=== PATIENT | male | born 1965 | race Caucasian/White ===

== ENCOUNTER 2017-05-31 13:35 | Inpatient (IN) | payer OTHER ==
[~2017-05-31] VITALS: Ht 177.8 cm; Wt 128.2 kg
[2017-05-31] MEDS ORDERED: IBUP80TA PO (13:51)
[2017-05-31] MEDS ORDERED: NS 1,000 ML IV SCH (15:00)
[2017-05-31] MEDS: MORPHINE 4 MG/ML 1ML SYRINGE IV PRN ×2 (16:02→18:32)
[2017-05-31 16:04] LABS: BASO # 0.1 10^3/uL (0.0-0.2); BASO % 0.2 % (0.0-1.0); IMMATURE GRANULOCYTE % 0.8 % (0-0); LYMPH # 1.1 10^3/uL (1.5-4.5); LYMPH % 3.4 % (24.0-44.0); MEAN CORPUSCULAR HEMOGLOBIN 30.5 pg (27.0-33.0); MEAN CORPUSCULAR VOLUME 92.4 fl (80.0-96.0); MONO # 1.1 10^3/uL (0.0-0.8); MONO % 3.4 % (0.0-5.0); NEUTROPHILS % 92.2 % (36.0-66.0); PLATELET COUNT, AUTOMATED 258 10^3/uL (150-450); RED CELL DISTRIBUTION WIDTH 13.4 % (11.5-14.5)
[2017-05-31 16:25] LABS: ALBUMIN 3.5 GM/DL (3.2-5.2); ALBUMIN/GLOBULIN RATIO 0.78 (1.00-1.93); ALKALINE PHOSPHATASE 64 U/L (45-117); ALT/SGPT 37 U/L (12-78); ANION GAP 5 MEQ/L (8-16); AST/SGOT 17 U/L (15-37); BILIRUBIN,DIRECT 0.1 MG/DL (0.0-0.2); BILIRUBIN,TOTAL 0.6 MG/DL (0.2-1.0); BLOOD UREA NITROGEN 18 MG/DL (7-18); CALCIUM LEVEL 9.1 MG/DL (8.5-10.1); CARBON DIOXIDE LEVEL 29 MEQ/L (21-32); CHLORIDE LEVEL 103 MEQ/L (98-107); CREATININE FOR GFR 1.13 MG/DL (0.70-1.30); GLOMERULAR FILTRATION RATE > 60.0 (>56); GLUCOSE, FASTING 107 MG/DL (70-105); POTASSIUM SERUM 4.1 MEQ/L (3.5-5.1); SODIUM LEVEL 137 MEQ/L (136-145)
[2017-05-31 16:30] LABS: ERYTHROCYTE SEDIMENTATION RATE 4 mm/hr (0-20)
[2017-05-31 16:45] LABS: NEUTROPHILS # 29.6 10^3/uL (1.8-7.7); WHITE BLOOD COUNT 32.2 10^3/uL (4.0-10.0)
--- NOTE | 2017-05-31 18:00 | REPUSA ---
CLINICAL HISTORY: Edema. COMMENTS: Real time sonography with duplex doppler of the right lower extremity was performed with attention to the major deep venous structures. Evaluation reveals the right common femoral, superficial femoral and popliteal veins to be completely compressible without intraluminal thrombus. There is normal spontaneous phasic flow and augmentation . The greater saphenous/common femoral vein junction is patent. IMPRESSION: No evidence of DVT in right lower extremity. Thank you for your kind referral of this patient.
[2017-05-31] MEDS ORDERED: ONDANSETRON 4MG/2ML VIAL (J2405) IV PRN (18:15)
[2017-05-31] MEDS: ACETAMINOPHEN TAB 650MG DOSE (2X325MG) PO PRN (18:31)
--- NOTE | 2017-05-31 18:33 | HPEPDOC ---
General Date of Admission 05/31/2017 at 6:31PM Chief Complaint The patient is a 52-year-old male presented to the ER with right leg pain since this morning. History of Present Illness Patient is a 52 year old male with history of traumatic right leg injury (1996) s/p fracture repair, muscle grafting and skin grafting who presented to the ER with complaints of right leg pain. Patient noted that in January he has had leg pain and drainage from his foot that required medical attention. He went to [facility] and was there for treatment of a cellulitis with drainage. He received Vancomycin and Clindamycin and was discharged home after 3 days without antibiotics. He noted that he had resolution of his symptoms, but had intermittent episodes of drainage from his foot until today. He noted that this morning he had pain that was very severe in his right calf. He rated the pain as a 10/10, aching, stabbing like. Noted that it worsened with movement and improved with morphine in the ER. Patient has described the leg as red, tender to touch and fire hot. He noted that he still experiences drainage from the bottom of his foot, described as yellow to clear. Patient has also noted subjected fevers, denied chills. Patient has noted some nausea, but denied vomiting. Denied chest pain, shortness of breath, palpitations, abdominal pain, constipation, diarrhea or dysuria. Home Medications Scheduled PRN Ibuprofen (Ibuprofen) 800 Mg Tab, 800 MG PO TID PRN for PAIN, (Reported) Allergies Coded Allergies: Penicillins (Verified Allergy, Unknown, 05/31/17) Past Medical History Medical History None reported Surgical History Traumatic leg injury (1996) Right face traumatic injury (age 14) Appendectomy (age 11) Family History - Mother with history of DM2 and HTN - Father unknown history - No history of malignancies Social History - Denies the use of alcohol or illicit drugs; Current smoker of 40 years at 2 ppd - Denies recent travel or sick contacts - Lives with for 37 years - 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; 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 Review of Symptoms Other systems Negative otherwise stated in HPI Vital Signs - Vitals: BP 161/66, HR 112, RR 18, Sat 100%RA, Temp 100.2F - General: Lying in bed, No acute distress, Speaking in full sentences, AAOx3 - HEENT: NC, AT, PERRLA, EOMI - CVS: RRR, +S1S2 - Lungs: Fair air entry bilaterally, Mild wheezing at b/l lung vered - Abdomen: Soft, Non-distended, Non-tender - Extremities: No lower extremity edema, No calf tenderness; Right leg with traumatic changes / skin and muscle grafting, Erythema / Tenderness / Warmth appreciated at right leg and foot, No visible drainage noted - Neuro: No focal motor or sensory deficit - Skin: No visible rashes Laboratory Data Labs 24H Laboratory Tests 2 05/31/17 15:53: Immature Granulocyte % (Auto) 0.8H, White Blood Count 32.2*H, Red Blood Count 5.02, Hemoglobin 15.3, Hematocrit 46.4, Mean Corpuscular Volume 92.4, Mean Corpuscular Hemoglobin 30.5, Mean Corpuscular Hemoglobin Concent 33.0, Red Cell Distribution Width 13.4, Platelet Count 258, Neutrophils (%) (Auto) 92.2H, Lymphocytes (%) (Auto) 3.4L, Monocytes (%) (Auto) 3.4, Eosinophils (%) (Auto) 0.0, Basophils (%) (Auto) 0.2, Neutrophils # (Auto) 29.6H, Lymphocytes # (Auto) 1.1L, Monocytes # (Auto) 1.1H, Eosinophils # (Auto) 0.0, Basophils # (Auto) 0.1 , Immature Granulocyte # (Auto) 0.3H, Nucleated Red Blood Cells % (auto) 0.0, Erythrocyte Sedimentation Rate 4, Anion Gap 5L, Glomerular Filtration Rate > 60.0, Lactic Acid Level 1.5, Calcium Level 9.1, Aspartate Amino Transf (AST/SGOT ) 17, Alanine Aminotransferase (ALT/SGPT) 37, Alkaline Phosphatase 64, Total Bilirubin 0.6, Direct Bilirubin 0.1, C-Reactive Protein, Quantitative 3.86H, Total Protein 8.0, Albumin 3.5, Albumin/Globulin Ratio 0.78L 05/31/17 17:00: Urine Appearance HAZY, Urine Color YELLOW, Urine pH 7.0, Urine Specific [place] 1.018, Urine Protein 1+H, Urine Glucose (UA) NEGATIVE, Urine Ketones NEGATIVE, Urine Urobilinogen 0.2, Urine Bilirubin NEGATIVE, Urine Leukocyte Esterase NEGATIVE, Urine Blood NEGATIVE, Urine Nitrite NEGATIVE, Urine WBC (Auto) 2, Urine RBC (Auto) 3, Urine Hyaline Casts (Auto) 0, Urine Bacteria (Auto) NEGATIVE , Urine Squamous Epithelial Cells 0, Urine Mucus (Auto) SMALL, Urine Sperm (Auto ) CBC/BMP Laboratory Tests 05/31/17 15:53 Red Blood Count 5.02, Mean Corpuscular Volume 92.4, Mean Corpuscular Hemoglobin 30.5, Mean Corpuscular Hemoglobin Concent 33.0, Red Cell Distribution Width 13.4 , Neutrophils (%) (Auto) 92.2 H, Lymphocytes (%) (Auto) 3.4 L, Monocytes (%) ( Auto) 3.4, Eosinophils (%) (Auto) 0.0, Basophils (%) (Auto) 0.2, Neutrophils # ( Auto) 29.6 H, Lymphocytes # (Auto) 1.1 L, Monocytes # (Auto) 1.1 H, Eosinophils # (Auto) 0.0, Basophils # (Auto) 0.1 Microbiology Microbiology 05/31/17 Blood Culture, Received Pending 05/31/17 Blood Culture, Received Pending Plan / VTE VTE Prophylaxis Ordered?: Yes Plan Plan Cellulitis of right leg and foot possibly with underlying osteomyelitis - Presented with redness, warmth, and pain of right foot, fevers at home - History of cellulitis in March requiring hospitalization - Physical with erythema, tenderness and warmth, no appreciable drainage, + lymphadenopathy at right inguinal area - Fever of 100.2 - WBC elevated at 32.2 with Neutrophil predominance, no lactic acidosis - ESR and CRP not significantly elevated - Duplex US 05/31: negative for DVT - Blood cultures pending - Will get XR of foot / tibia / fibula to evaluate for possible osteomyelitis - Will start IV fluid hydration and Ceftaroline - Pain control with Morphine PRN Leukocytosis - See above DVT prophylaxis - Will start Heparin DENISE MOHAMUD MD May 31, 2017 18:33
[2017-05-31] MEDS: NS 1,000 ML IV SCH (18:35)
[2017-05-31] MEDS: CEFTAROLINE FOSAMIL 600 MG in D5W 50 ML IV SCH (18:54)
[2017-05-31 20:45] VITALS: BP 97/52
[2017-05-31] MEDS: HEPARIN SOD (PORCINE) 5000 UNITS/ML VIAL SC SCH (23:49)
[2017-06-01] MEDS: MORPHINE 4 MG/ML 1ML SYRINGE IV PRN ×2 (03:37→12:33)
[2017-06-01] MEDS: NS 1,000 ML IV SCH (03:41)
[2017-06-01 06:00] VITALS: BP 100/60
[2017-06-01] MEDS: CEFTAROLINE FOSAMIL 600 MG in D5W 50 ML IV SCH ×2 (06:12→18:14)
[2017-06-01] MEDS: HEPARIN SOD (PORCINE) 5000 UNITS/ML VIAL SC SCH ×3 (06:12→22:43)
[2017-06-01 06:23] LABS: MEAN CORPUSCULAR HEMOGLOBIN 30.6 pg (27.0-33.0); MEAN CORPUSCULAR HGB CONC 33.1 g/dl (32.0-36.5); MEAN CORPUSCULAR VOLUME 92.4 fl (80.0-96.0); PLATELET COUNT, AUTOMATED 229 10^3/uL (150-450); RED CELL DISTRIBUTION WIDTH 13.5 % (11.5-14.5); WHITE BLOOD COUNT 22.4 10^3/uL (4.0-10.0)
[2017-06-01 06:39] LABS: ADD MANUAL DIFFER YES; DIFF SLIDE NUMBER 63
[2017-06-01 06:40] LABS: ALBUMIN 2.9 GM/DL (3.2-5.2); ALBUMIN/GLOBULIN RATIO 0.71 (1.00-1.93); ALKALINE PHOSPHATASE 66 U/L (45-117); ALT/SGPT 28 U/L (12-78); ANION GAP 7 MEQ/L (8-16); AST/SGOT 10 U/L (15-37); BILIRUBIN,TOTAL 0.5 MG/DL (0.2-1.0); BLOOD UREA NITROGEN 13 MG/DL (7-18); CALCIUM LEVEL 7.9 MG/DL (8.5-10.1); CARBON DIOXIDE LEVEL 25 MEQ/L (21-32); CHLORIDE LEVEL 106 MEQ/L (98-107); CREATININE FOR GFR 0.77 MG/DL (0.70-1.30); GLOMERULAR FILTRATION RATE > 60.0 (>56); GLUCOSE, FASTING 91 MG/DL (70-105); MAGNESIUM LEVEL 2.1 MG/DL (1.8-2.4); POTASSIUM SERUM 3.7 MEQ/L (3.5-5.1); SODIUM LEVEL 138 MEQ/L (136-145)
[2017-06-01 08:03] LABS: BASOPHILS 1 % (0-4)
[2017-06-01 10:00] VITALS: BP 107/54
--- NOTE | 2017-06-01 11:30 | REP ---
A right tib-fib series: Four views. History: Evaluate for bone changes. Comparison radiographs April 08, 2015. Findings: Four views of the right tibia and fibula demonstrate old post-traumatic deformity in the distal fibula and tibia. This is unchanged from the comparison study of 2014. There are surgical clips in the calf soft tissues and some dystrophic calcification is seen. 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 There is a metallic staple in the lateral aspect of the hindfoot. Impression: No acute bony abnormality. Old post-traumatic changes distal tib-fib. Postsurgical changes. Signed by Dixon Sanchez MD 06/01/2017 09:37 A
--- NOTE | 2017-06-01 11:30 | REP ---
Right foot series: Two views. History: Evaluate for bone changes. Findings: There is diffuse osteopenia. A lateral hindfoot staple is seen status post subtalar joint fusion. Dystrophic calcification is seen in the plantar soft tissues. Old post-traumatic deformity is seen in the distal fibula. 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 Impression: No acute bony abnormality. Signed by Dixon Sanchez MD 06/01/2017 09:36 A
--- NOTE | 2017-06-01 13:42 | IPNPDOC ---
Date Seen The patient was seen on 06/01/17. Progress Note Hospitalist Progress Note Subjective: Patient states that the pain in his leg is a little bit better, but the erythema has not improved Objective: Physical Exam: Vitals: Vital Sign - Last 24 Hours 05/31/17 05/31/17 05/31/17 05/31/17 15:30 16:02 16:17 18:26 Temp 101.4 Pulse 69 Resp 16 16 16 16 B/P (MAP) 167/84 (111) Pulse Ox 94 05/31/17 05/31/17 05/31/17 06/01/17 18:32 20:06 20:45 03:37 Temp 99.0 98.9 Pulse 89 88 Resp 16 18 B/P (MAP) 122/50 (74) 97/52 (67) Pulse Ox 94 92 91 95 O2 Delivery Room Air Room Air Room Air 06/01/17 06/01/17 06/01/17 06/01/17 03:47 06:00 09:00 10:00 Temp 99.2 98.4 Pulse 88 80 Resp 18 18 B/P (MAP) 100/60 (73) 107/54 (71) Pulse Ox 94 94 96 O2 Delivery Room Air Room Air Room Air 06/01/17 06/01/17 12:33 12:43 Resp 18 18 General: Awake, alert, no acute distress HEENT: Normocephalic, atraumatic, extraocular movements intact CV: Regular rate and rhythm Lungs: Clear to auscultation bilaterally Abd: Soft, nontender, nondistended Extremities: Intact pedal pulses bilaterally, right lower extremity shows postsurgical changes secondary to skin and muscle grafting with erythema of the calf, coleman, and foot, as well as an area on the bottom of his foot that shows prior grafting but is not currently open or draining Neuro: Alert and oriented 3, normal speech Psych: Normal mood and affect Labs and Imaging: Laboratory Tests 05/31/17 15:53 Red Blood Count 5.02, Mean Corpuscular Volume 92.4, Mean Corpuscular Hemoglobin 30.5, Mean Corpuscular Hemoglobin Concent 33.0, Red Cell Distribution Width 13.4 , Neutrophils (%) (Auto) 92.2 H, Lymphocytes (%) (Auto) 3.4 L, Monocytes (%) ( Auto) 3.4, Eosinophils (%) (Auto) 0.0, Basophils (%) (Auto) 0.2, Neutrophils # ( Auto) 29.6 H, Lymphocytes # (Auto) 1.1 L, Monocytes # (Auto) 1.1 H, Eosinophils # (Auto) 0.0, Basophils # (Auto) 0.1 06/01/17 05:33 Red Blood Count 4.48, Mean Corpuscular Volume 92.4, Mean Corpuscular Hemoglobin 30.6, Mean Corpuscular Hemoglobin Concent 33.1, Red Cell Distribution Width 13.5 , Monocytes # (Auto) , Calcium Level 7.9 L, Aspartate Amino Transf (AST/SGOT) 10 L, Alanine Aminotransferase (ALT/SGPT) 28, Alkaline Phosphatase 66, Total Bilirubin 0.5, Total Protein 7.0, Albumin 2.9 L Assessment and Plan: 52-year-old male with history of traumatic injury to his right leg requiring skin and muscle grafting in 1996 who presented to the emergency department with right leg pain and erythema. He is admitted with cellulitis of the right lower extremity. 1. Right lower extremity cellulitis: The patient's Tmax yesterday was 101.4. WBC upon arrival was 32.2, and this is now improved to 22.2. Blood cultures are pending, but since there is nothing that is currently draining, we cannot obtain a wound culture. There is no evidence of clot on a Doppler ultrasound. Will assess with MRI to rule out osteomyelitis, and continue with Teflaro. BP has been soft, so we will continue IV fluids. DVT prophylaxis: Heparin Dispo: pending improvement of the cellulitis in his leg VS, I&O, [facility]H, [facility] Vital Signs/I&O Vital Signs Date Time Temp Pulse Resp B/P (MAP) Pulse Ox O2 Delivery O2 Flow Rate FiO2 06/01/17 12:43 18 06/01/17 10:00 98.4 80 107/54 (71) 96 Room Air I&O- Last 24 Hours up to 6 AM 06/02/17 06:00 Intake Total 720 ml Output Total 350 ml Balance 370 ml Laboratory Data 24H LABS Laboratory Tests 2 05/31/17 15:53: Immature Granulocyte % (Auto) 0.8H, White Blood Count 32.2*H, Red Blood Count 5.02, Hemoglobin 15.3, Hematocrit 46.4, Mean Corpuscular Volume 92.4, Mean Corpuscular Hemoglobin 30.5, Mean Corpuscular Hemoglobin Concent 33.0, Red Cell Distribution Width 13.4, Platelet Count 258, Neutrophils (%) (Auto) 92.2H, Lymphocytes (%) (Auto) 3.4L, Monocytes (%) (Auto) 3.4, Eosinophils (%) (Auto) 0.0, Basophils (%) (Auto) 0.2, Neutrophils # (Auto) 29.6H, Lymphocytes # (Auto) 1.1L, Monocytes # (Auto) 1.1H, Eosinophils # (Auto) 0.0, Basophils # (Auto) 0.1 , Immature Granulocyte # (Auto) 0.3H, Nucleated Red Blood Cells % (auto) 0.0, Erythrocyte Sedimentation Rate 4, Anion Gap 5L, Glomerular Filtration Rate > 60.0, Lactic Acid Level 1.5, Calcium Level 9.1, Phosphorus Level 2.0L, Magnesium Level 2.0, Aspartate Amino Transf (AST/SGOT) 17, Alanine Aminotransferase (ALT/SGPT) 37, Alkaline Phosphatase 64, Total Bilirubin 0.6, Direct Bilirubin 0.1, C-Reactive Protein, Quantitative 3.86H, Total Protein 8.0 , Albumin 3.5, Albumin/Globulin Ratio 0.78L 05/31/17 17:00: Urine Appearance HAZY, Urine Color YELLOW, Urine pH 7.0, Urine Specific [place] 1.018, Urine Protein 1+H, Urine Glucose (UA) NEGATIVE, Urine Ketones NEGATIVE, Urine Urobilinogen 0.2, Urine Bilirubin NEGATIVE, Urine Leukocyte Esterase NEGATIVE, Urine Blood NEGATIVE, Urine Nitrite NEGATIVE, Urine WBC (Auto) 2, Urine RBC (Auto) 3, Urine Hyaline Casts (Auto) 0, Urine Bacteria (Auto) NEGATIVE , Urine Squamous Epithelial Cells 0, Urine Mucus (Auto) SMALL, Urine Sperm (Auto ) 06/01/17 05:33: White Blood Count 22.4H, Red Blood Count 4.48, Hemoglobin 13.7L, Hematocrit 41.4L, Mean Corpuscular Volume 92.4, Mean Corpuscular Hemoglobin 30.6, Mean Corpuscular Hemoglobin Concent 33.1, Red Cell Distribution Width 13.5, Platelet Count 229, Monocytes # (Auto) , Nucleated Red Blood Cells % (auto) 0.0, Anion Gap 7L, Glomerular Filtration Rate > 60.0, Calcium Level 7.9L, Magnesium Level 2.1, Aspartate Amino Transf (AST/SGOT) 10L, Alanine Aminotransferase (ALT/SGPT) 28, Alkaline Phosphatase 66, Total Bilirubin 0.5, C-Reactive Protein, Quantitative 12.30H, Total Protein 7.0, Albumin 2.9L, Albumin/Globulin Ratio 0.71L, Neutrophils 84H, Lymphocytes (Manual) 8L, Monocytes (Manual) 6, Basophils (Manual) 1, Atypical Lymphocytes 1, Platelet Estimate NORMAL, Red Blood Cell Morphology NORMAL, Blood Urea Nitrogen 13, Creatinine 0.77, Sodium Level 138, Potassium Level 3.7, Chloride Level 106, Carbon Dioxide Level 25 CBC/BMP Laboratory Tests 05/31/17 15:53 Red Blood Count 5.02, Mean Corpuscular Volume 92.4, Mean Corpuscular Hemoglobin 30.5, Mean Corpuscular Hemoglobin Concent 33.0, Red Cell Distribution Width 13.4 , Neutrophils (%) (Auto) 92.2 H, Lymphocytes (%) (Auto) 3.4 L, Monocytes (%) ( Auto) 3.4, Eosinophils (%) (Auto) 0.0, Basophils (%) (Auto) 0.2, Neutrophils # ( Auto) 29.6 H, Lymphocytes # (Auto) 1.1 L, Monocytes # (Auto) 1.1 H, Eosinophils # (Auto) 0.0, Basophils # (Auto) 0.1 06/01/17 05:33 Red Blood Count 4.48, Mean Corpuscular Volume 92.4, Mean Corpuscular Hemoglobin 30.6, Mean Corpuscular Hemoglobin Concent 33.1, Red Cell Distribution Width 13.5 , Monocytes # (Auto) , Calcium Level 7.9 L, Aspartate Amino Transf (AST/SGOT) 10 L, Alanine Aminotransferase (ALT/SGPT) 28, Alkaline Phosphatase 66, Total Bilirubin 0.5, Total Protein 7.0, Albumin 2.9 L Microbiology Microbiology 05/31/17 Blood Culture, Received Pending 05/31/17 Blood Culture, Received Pending LUIS NAIR Jun 01, 2017 13:42
[2017-06-01 14:00] VITALS: BP 107/50
[2017-06-01 18:00] VITALS: BP 132/63
[2017-06-01 22:00] VITALS: BP 126/60
[2017-06-01] MEDS: NORCO, ANEXSIA 5/325MG TABLET (HYDROcodone/ACETAMINOPHEN) PO PRN (22:48)
[2017-06-02 02:00] VITALS: BP 100/59
[2017-06-02 06:00] VITALS: BP 118/72
[2017-06-02] MEDS: HEPARIN SOD (PORCINE) 5000 UNITS/ML VIAL SC SCH ×3 (06:00→21:05)
[2017-06-02 06:20] LABS: MEAN CORPUSCULAR HEMOGLOBIN 30.5 pg (27.0-33.0); MEAN CORPUSCULAR HGB CONC 32.7 g/dl (32.0-36.5); MEAN CORPUSCULAR VOLUME 93.2 fl (80.0-96.0); PLATELET COUNT, AUTOMATED 243 10^3/uL (150-450); RED CELL DISTRIBUTION WIDTH 13.3 % (11.5-14.5)
[2017-06-02 06:29] LABS: POSITIVE DIFF POS FLAG
[2017-06-02 06:30] LABS: ALBUMIN 2.8 GM/DL (3.2-5.2); ALBUMIN/GLOBULIN RATIO 0.65 (1.00-1.93); ALKALINE PHOSPHATASE 53 U/L (45-117); ALT/SGPT 24 U/L (12-78); ANION GAP 3 MEQ/L (8-16); AST/SGOT 11 U/L (15-37); BILIRUBIN,TOTAL 0.2 MG/DL (0.2-1.0); BLOOD UREA NITROGEN 12 MG/DL (7-18); CALCIUM LEVEL 8.5 MG/DL (8.5-10.1); CARBON DIOXIDE LEVEL 28 MEQ/L (21-32); CHLORIDE LEVEL 107 MEQ/L (98-107); GLOMERULAR FILTRATION RATE > 60.0 (>56); GLUCOSE, FASTING 101 MG/DL (70-105); MAGNESIUM LEVEL 2.4 MG/DL (1.8-2.4); POTASSIUM SERUM 3.9 MEQ/L (3.5-5.1); SODIUM LEVEL 138 MEQ/L (136-145); TOTAL PROTEIN 7.1 GM/DL (6.4-8.2)
[2017-06-02 06:31] LABS: ADD MANUAL DIFFER YES; DIFF SLIDE NUMBER 81
[2017-06-02] MEDS: CEFTAROLINE FOSAMIL 600 MG in D5W 50 ML IV SCH ×2 (06:39→18:16)
[2017-06-02] MEDS: NORCO, ANEXSIA 5/325MG TABLET (HYDROcodone/ACETAMINOPHEN) PO PRN ×3 (06:40→21:06)
[2017-06-02 10:00] VITALS: BP 133/57
[2017-06-02 14:00] VITALS: BP 123/60
--- NOTE | 2017-06-02 16:13 | IPNPDOC ---
Date Seen The patient was seen on 06/02/17. Progress Note Hospitalist Progress Note Subjective: Patient states that the pain and erythema in his leg are improving Objective: Physical Exam: Vitals: Vital Sign - Last 24 Hours 06/01/17 06/01/17 06/01/17 06/01/17 18:00 22:00 22:00 22:48 Temp 98.8 99.0 Pulse 89 86 Resp 18 18 18 B/P (MAP) 132/63 (86) 126/60 (82) Pulse Ox 95 94 O2 Delivery Room Air Room Air Room Air Room Air 06/02/17 06/02/17 06/02/17 06/02/17 02:00 06:00 06:40 08:00 Temp 97.8 97.4 Pulse 74 82 Resp 18 18 18 B/P (MAP) 100/59 (73) 118/72 (87) Pulse Ox 91 96 O2 Delivery Room Air Room Air Room Air Room Air 06/02/17 06/02/17 06/02/17 06/02/17 10:00 10:58 11:28 14:00 Temp 97.5 97.4 Pulse 67 70 Resp 16 18 18 16 B/P (MAP) 133/57 (82) 123/60 (81) Pulse Ox 97 94 O2 Delivery Room Air Room Air Room Air Room Air General: Awake, alert, no acute distress HEENT: Normocephalic, atraumatic, extraocular movements intact CV: Regular rate and rhythm Lungs: Clear to auscultation bilaterally Abd: Soft, nontender, nondistended Extremities: Intact pedal pulses bilaterally, right lower extremity shows postsurgical changes secondary to skin and muscle grafting with improved erythema of the calf, coleman, and foot, as well as an area on the bottom of his foot that shows prior grafting but is not currently open or draining Neuro: Alert and oriented 3, normal speech Psych: Normal mood and affect Labs and Imaging: Laboratory Tests 06/02/17 05:27 Calcium Level 8.5, Aspartate Amino Transf (AST/SGOT) 11 L, Alanine Aminotransferase (ALT/SGPT) 24, Alkaline Phosphatase 53, Total Bilirubin 0.2 #, Total Protein 7.1, Albumin 2.8 L 06/02/17 05:28 Red Blood Count 4.43, Mean Corpuscular Volume 93.2, Mean Corpuscular Hemoglobin 30.5, Mean Corpuscular Hemoglobin Concent 32.7, Red Cell Distribution Width 13.3 , Monocytes # (Auto) Assessment and Plan: 52-year-old male with history of traumatic injury to his right leg requiring skin and muscle grafting in 1996 who presented to the emergency department with right leg pain and erythema. He is admitted with cellulitis of the right lower extremity. 1. Right lower extremity cellulitis: The patient is now afebrile. WBC upon arrival was 32.2, and has showed continued improvement to 14. Clinically, the leg is improving. Blood cultures are pending, but since there is nothing that is currently draining, we cannot obtain a wound culture. There is no evidence of clot on a Doppler ultrasound. MRI to rule out osteomyelitis is pending; patient evidently has a staple in his leg remaining from his extensive repair, and MRI is evaluating if this is compatible with the MRI machine or not. Xray does not show any bone abnormalities. Continue with Teflaro. Stop IV fluids. DVT prophylaxis: Heparin Dispo: pending improvement of the cellulitis in his leg VS, I&O, 24H, [facility] Vital Signs/I&O Vital Signs Date Time Temp Pulse Resp B/P (MAP) Pulse Ox O2 Delivery O2 Flow Rate FiO2 06/02/17 14:00 97.4 70 16 123/60 (81) 94 Room Air I&O- Last 24 Hours up to 6 AM 06/03/17 06:00 Intake Total 600 ml Balance 600 ml Laboratory Data 24H LABS Laboratory Tests 2 06/02/17 05:27: Anion Gap 3L, Glomerular Filtration Rate > 60.0, Blood Urea Nitrogen 12, Creatinine 0.70, Sodium Level 138, Potassium Level 3.9, Chloride Level 107, Carbon Dioxide Level 28, Calcium Level 8.5, Aspartate Amino Transf (AST/SGOT) 11L, Alanine Aminotransferase (ALT/SGPT) 24, Alkaline Phosphatase 53, Total Bilirubin 0.2#, Total Protein 7.1, Albumin 2.8L, Magnesium Level 2.4, C- Reactive Protein, Quantitative 15.70H, Albumin/Globulin Ratio 0.65L 06/02/17 05:28: White Blood Count 14.0H, Red Blood Count 4.43, Hemoglobin 13.5L, Hematocrit 41.3L, Mean Corpuscular Volume 93.2, Mean Corpuscular Hemoglobin 30.5, Mean Corpuscular Hemoglobin Concent 32.7, Red Cell Distribution Width 13.3, Platelet Count 243, Monocytes # (Auto) , Nucleated Red Blood Cells % (auto) 0.0, Neutrophils 77H, Lymphocytes (Manual) 16, Monocytes (Manual) 7, Platelet Estimate NORMAL, Red Blood Cell Morphology NORMAL CBC/BMP Laboratory Tests 06/02/17 05:27 Calcium Level 8.5, Aspartate Amino Transf (AST/SGOT) 11 L, Alanine Aminotransferase (ALT/SGPT) 24, Alkaline Phosphatase 53, Total Bilirubin 0.2 #, Total Protein 7.1, Albumin 2.8 L 06/02/17 05:28 Red Blood Count 4.43, Mean Corpuscular Volume 93.2, Mean Corpuscular Hemoglobin 30.5, Mean Corpuscular Hemoglobin Concent 32.7, Red Cell Distribution Width 13.3 , Monocytes # (Auto) Microbiology Microbiology 05/31/17 Blood Culture - Preliminary, Resulted No Growth after 48 hours. All Specime... 05/31/17 Blood Culture - Preliminary, Resulted No Growth after 48 hours. All Specime... LUIS NAIR Jun 02, 2017 16:13
[2017-06-02] MEDS ORDERED: PROHANCE 279.3MG/ML 5ML VIAL (A9576) As Ordered ONE (16:32)
[2017-06-02] MEDS ORDERED: PROHANCE 279.3MG/ML 15ML VIAL (A9576) As Ordered ONE (16:32)
[2017-06-02 18:00] VITALS: BP 119/64
[2017-06-02 22:00] VITALS: BP 107/53
[2017-06-03 02:00] VITALS: BP 122/57
[2017-06-03 06:00] VITALS: BP 122/65
[2017-06-03] MEDS: CEFTAROLINE FOSAMIL 600 MG in D5W 50 ML IV SCH ×2 (06:15→17:59)
[2017-06-03] MEDS: HEPARIN SOD (PORCINE) 5000 UNITS/ML VIAL SC SCH ×3 (06:15→21:00)
[2017-06-03 06:16] LABS: BASO # 0.1 10^3/uL (0.0-0.2); BASO % 0.8 % (0.0-1.0); EOS # 0.3 10^3/uL (0.0-0.50); EOS % 2.2 % (0.0-3.0); IMMATURE GRANULOCYTE % 0.7 % (0-0); LYMPH # 2.5 10^3/uL (1.5-4.5); LYMPH % 20.9 % (24.0-44.0); MEAN CORPUSCULAR HEMOGLOBIN 30.7 pg (27.0-33.0); MEAN CORPUSCULAR VOLUME 92.8 fl (80.0-96.0); MONO # 1.2 10^3/uL (0.0-0.8); NEUTROPHILS # 7.9 10^3/uL (1.8-7.7); NEUTROPHILS % 65.4 % (36.0-66.0); PLATELET COUNT, AUTOMATED 282 10^3/uL (150-450); RED CELL DISTRIBUTION WIDTH 13.3 % (11.5-14.5)
[2017-06-03 06:43] LABS: ALBUMIN 2.9 GM/DL (3.2-5.2); ALKALINE PHOSPHATASE 60 U/L (45-117); ALT/SGPT 30 U/L (12-78); ANION GAP 6 MEQ/L (8-16); AST/SGOT 21 U/L (15-37); BILIRUBIN,TOTAL 0.4 MG/DL (0.2-1.0); BLOOD UREA NITROGEN 12 MG/DL (7-18); CALCIUM LEVEL 8.5 MG/DL (8.5-10.1); CARBON DIOXIDE LEVEL 26 MEQ/L (21-32); CHLORIDE LEVEL 106 MEQ/L (98-107); CREATININE FOR GFR 0.72 MG/DL (0.70-1.30); GLOMERULAR FILTRATION RATE > 60.0 (>56); GLUCOSE, FASTING 88 MG/DL (70-105); MAGNESIUM LEVEL 2.1 MG/DL (1.8-2.4); POTASSIUM SERUM 4.4 MEQ/L (3.5-5.1); SODIUM LEVEL 138 MEQ/L (136-145); TOTAL PROTEIN 7.7 GM/DL (6.4-8.2)
[2017-06-03 08:36] VITALS: BP 130/71
--- NOTE | 2017-06-03 10:01 | REP ---
MRI RIGHT LOWER LEG WITH AND WITHOUT CONTRAST: TECHNIQUE: Multiple sequences obtained in the axial, coronal and sagittal planes prior to and following the intravenous administration of 25 mL of gadolinium. Diffuse ill-defined high signal is seen throughout the soft tissues of the right lower leg on T2-weighted images compatible with diffuse edema. There is scattered ill-defined enhancement of the soft tissues consistent with cellulitis. No focal fluid collection is seen, with no evidence of an abscess. Linear area of high signal in the distal tibia appears to represent a sinus tract from trauma and probably prior metallic hardware, with subsequent removal. No acute bone marrow edema is seen of the tibia or fibula and there is no marrow enhancement with no current evidence of acute osteomyelitis. IMPRESSION: No evidence of acute osteomyelitis. Diffuse edema of the soft tissues of the right lower leg with cellulitis. No abscess. Signed by Steven Harrison MD 06/03/2017 07:57 P
--- NOTE | 2017-06-03 10:08 | REP ---
MRI OF THE RIGHT FOOT WITH AND WITHOUT CONTRAST: TECHNIQUE: Multiple sequences obtained in the axial, coronal and sagittal planes prior to and following the intravenous administration of 25 mL of gadolinium. There is metallic artifact in the region of the lateral aspect of the calcaneus which causes adjacent limited evaluation of directly adjacent structures. There appears to have been prior talocalcaneal fusion. I do not see acute marrow edema of the osseous structures of the right foot. There is no abnormal marrow enhancement with no evidence of acute osteomyelitis. Diffuse ill-defined high signal on T2-weighted images signified diffuse soft tissue edema. There are areas of ill-defined enhancement as well compatible with cellulitis. No abscess or other fluid collection is seen. There is scattered joint space narrowing at the intertarsal and tarsal/metatarsal joints, as well as the first metatarsophalangeal joint. IMPRESSION: Findings compatible with soft tissue edema and cellulitis. No evidence of osteomyelitis or abscess. Signed by Steven Harrison MD 06/03/2017 07:57 P
--- NOTE | 2017-06-03 14:53 | IPNPDOC ---
Date Seen The patient was seen on 06/03/17. Progress Note Subjective: Pain and swelling unchanged however redness of the leg has improved. MRI of leg and foot negative for any osteomyelitis. No fever or chills. complains of intermittent drainage from the planter aspect of the foot. Physical Exam: General: Awake, alert, no acute distress HEENT: Normocephalic, atraumatic, extraocular movements intact CV: Regular rate and rhythm Lungs: Clear to auscultation bilaterally Abd: Soft, nontender, nondistended Extremities: Intact pedal pulses bilaterally, right lower extremity shows postsurgical changes secondary to skin and muscle grafting with improved erythema of the calf, coleman, and foot, as well as an area on the bottom of his foot that shows prior grafting but is not currently open or draining Neuro: Alert and oriented 3, normal speech Psych: Normal mood and affect Labs and Imaging: As below. Assessment and Plan: 52-year-old male with history of traumatic injury to his right leg requiring skin and muscle grafting in 1996 who presented to the emergency department with right leg pain and erythema. He is admitted with cellulitis of the right lower extremity. 1. Right lower extremity cellulitis: The patient is now afebrile. WBC upon arrival was 32.2, and has showed continued improvement to 14. Clinically, the leg is improving. Blood cultures are pending, but since there is nothing that is currently draining, we cannot obtain a wound culture. There is no evidence of clot on a Doppler ultrasound. MRI to rule out osteomyelitis is pending; patient evidently has a staple in his leg remaining from his extensive repair, and MRI is evaluating if this is compatible with the MRI machine or not. Xray does not show any bone abnormalities. Continue with Teflaro. DVT prophylaxis: Heparin Dispo: pending improvement of the cellulitis in his leg VS, I&O, 24H, Fishbone Vital Signs/I&O Vital Signs Date Time Temp Pulse Resp B/P (MAP) Pulse Ox O2 Delivery O2 Flow Rate FiO2 06/03/17 08:36 96.9 79 18 130/71 (90) 96 Room Air I&O- Last 24 Hours up to 6 AM 06/04/17 05:59 Intake Total 590 ml Output Total 300 ml Balance 290 ml Laboratory Data 24H LABS Laboratory Tests 2 06/03/17 05:27: Immature Granulocyte % (Auto) 0.7H, White Blood Count 12.0H, Red Blood Count 4.60, Hemoglobin 14.1, Hematocrit 42.7, Mean Corpuscular Volume 92.8, Mean Corpuscular Hemoglobin 30.7, Mean Corpuscular Hemoglobin Concent 33.0, Red Cell Distribution Width 13.3, Platelet Count 282, Neutrophils (%) (Auto) 65.4, Lymphocytes (%) (Auto) 20.9L, Monocytes (%) (Auto) 10.0H, Eosinophils (%) (Auto ) 2.2, Basophils (%) (Auto) 0.8, Neutrophils # (Auto) 7.9H, Lymphocytes # (Auto ) 2.5, Monocytes # (Auto) 1.2H, Eosinophils # (Auto) 0.3, Basophils # (Auto) 0.1 , Immature Granulocyte # (Auto) 0.1H, Nucleated Red Blood Cells % (auto) 0.0, Anion Gap 6L, Glomerular Filtration Rate > 60.0, Blood Urea Nitrogen 12, Creatinine 0.72, Sodium Level 138, Potassium Level 4.4, Chloride Level 106, Carbon Dioxide Level 26, Calcium Level 8.5, Aspartate Amino Transf (AST/SGOT) 21 , Alanine Aminotransferase (ALT/SGPT) 30, Alkaline Phosphatase 60, Total Bilirubin 0.4#, Total Protein 7.7, Albumin 2.9L, Magnesium Level 2.1, C- Reactive Protein, Quantitative 9.13H, Albumin/Globulin Ratio 0.60L CBC/BMP Laboratory Tests 06/03/17 05:27 Red Blood Count 4.60, Mean Corpuscular Volume 92.8, Mean Corpuscular Hemoglobin 30.7, Mean Corpuscular Hemoglobin Concent 33.0, Red Cell Distribution Width 13.3 , Neutrophils (%) (Auto) 65.4, Lymphocytes (%) (Auto) 20.9 L, Monocytes (%) ( Auto) 10.0 H, Eosinophils (%) (Auto) 2.2, Basophils (%) (Auto) 0.8, Neutrophils # (Auto) 7.9 H, Lymphocytes # (Auto) 2.5, Monocytes # (Auto) 1.2 H, Eosinophils # (Auto) 0.3, Basophils # (Auto) 0.1, Calcium Level 8.5, Aspartate Amino Transf (AST/SGOT) 21, Alanine Aminotransferase (ALT/SGPT) 30, Alkaline Phosphatase 60, Total Bilirubin 0.4 #, Total Protein 7.7, Albumin 2.9 L Microbiology Microbiology 05/31/17 Blood Culture - Preliminary, Resulted No Growth after 48 hours. All Specime... 05/31/17 Blood Culture - Preliminary, Resulted No Growth after 48 hours. All Specime... JUNE MOORE MD Jun 03, 2017 14:53
[2017-06-03 14:57] VITALS: BP 140/51
[2017-06-03] MEDS: NORCO, ANEXSIA 5/325MG TABLET (HYDROcodone/ACETAMINOPHEN) PO PRN (17:59)
[2017-06-03] MEDS ORDERED: diphenhydrAMINE INJ 50MG/ML VIAL (J1200) IV ONE (18:15)
[2017-06-03 22:00] VITALS: BP 133/57
[2017-06-04 06:00] VITALS: BP_SYST 126
[2017-06-04] MEDS: HEPARIN SOD (PORCINE) 5000 UNITS/ML VIAL SC SCH ×3 (06:07→22:01)
[2017-06-04] MEDS: CEFTAROLINE FOSAMIL 600 MG in D5W 50 ML IV SCH ×2 (06:07→18:54)
[2017-06-04 06:12] LABS: BASO # 0.1 10^3/uL (0.0-0.2); BASO % 0.7 % (0.0-1.0); EOS # 0.3 10^3/uL (0.0-0.50); EOS % 2.8 % (0.0-3.0); IMMATURE GRANULOCYTE % 1.5 % (0-0); LYMPH # 2.4 10^3/uL (1.5-4.5); LYMPH % 24.4 % (24.0-44.0); MEAN CORPUSCULAR HEMOGLOBIN 30.6 pg (27.0-33.0); MEAN CORPUSCULAR HGB CONC 33.3 g/dl (32.0-36.5); MEAN CORPUSCULAR VOLUME 91.9 fl (80.0-96.0); MONO # 1.1 10^3/uL (0.0-0.8); MONO % 10.8 % (0.0-5.0); NEUTROPHILS # 5.9 10^3/uL (1.8-7.7); NEUTROPHILS % 59.8 % (36.0-66.0); PLATELET COUNT, AUTOMATED 325 10^3/uL (150-450); RED CELL DISTRIBUTION WIDTH 13.2 % (11.5-14.5); WHITE BLOOD COUNT 9.9 10^3/uL (4.0-10.0)
[2017-06-04 06:36] LABS: ALBUMIN 2.8 GM/DL (3.2-5.2); ALKALINE PHOSPHATASE 52 U/L (45-117); ALT/SGPT 32 U/L (12-78); ANION GAP 6 MEQ/L (8-16); AST/SGOT 16 U/L (15-37); BILIRUBIN,TOTAL 0.3 MG/DL (0.2-1.0); BLOOD UREA NITROGEN 13 MG/DL (7-18); CALCIUM LEVEL 8.6 MG/DL (8.5-10.1); CARBON DIOXIDE LEVEL 27 MEQ/L (21-32); CHLORIDE LEVEL 108 MEQ/L (98-107); CREATININE FOR GFR 0.79 MG/DL (0.70-1.30); GLOMERULAR FILTRATION RATE > 60.0 (>56); GLUCOSE, FASTING 93 MG/DL (70-105); MAGNESIUM LEVEL 2.2 MG/DL (1.8-2.4); SODIUM LEVEL 141 MEQ/L (136-145); TOTAL PROTEIN 7.5 GM/DL (6.4-8.2)
[2017-06-04 10:00] VITALS: BP 127/60
[2017-06-04 14:00] VITALS: BP 118/56
--- NOTE | 2017-06-04 14:03 | IPNPDOC ---
Text Note Date of Service The patient was seen on 06/04/17. NOTE Subjective: Pain and swelling and rdness is improving . MRI of leg and foot negative for any osteomyelitis. No fever or chills. complains of intermittent drainage from the planter aspect of the foot. Physical Exam: General: Awake, alert, no acute distress HEENT: Normocephalic, atraumatic, extraocular movements intact CV: Regular rate and rhythm Lungs: Clear to auscultation bilaterally Abd: Soft, nontender, nondistended Extremities: Intact pedal pulses bilaterally, right lower extremity shows postsurgical changes secondary to skin and muscle grafting with improved erythema of the calf, coleman, and foot, as well as an area on the bottom of his foot that shows prior grafting but is not currently open or draining Neuro: Alert and oriented 3, normal speech Psych: Normal mood and affect Labs and Imaging: As below. Assessment and Plan: 52-year-old male with history of traumatic injury to his right leg requiring skin and muscle grafting in 1996 who presented to the emergency department with right leg pain and erythema. He is admitted with cellulitis of the right lower extremity. 1. Right lower extremity cellulitis: The patient is now afebrile. WBC upon arrival was 32.2, and has showed continued improvement Clinically, the leg is improving. Blood cultures are pending, but since there is nothing that is currently draining, we cannot obtain a wound culture. There is no evidence of clot on a Doppler ultrasound. MRI to rule out osteomyelitis is pending; patient evidently has a staple in his leg remaining from his extensive repair Continue with Teflaro. will change to po antibiotics on discharge. DVT prophylaxis: Heparin Dispo: pending improvement of the cellulitis in his leg VS,Shantal, I+O VS, Shantal, I+O Laboratory Tests 06/04/17 05:35 Red Blood Count 4.58, Mean Corpuscular Volume 91.9, Mean Corpuscular Hemoglobin 30.6, Mean Corpuscular Hemoglobin Concent 33.3, Red Cell Distribution Width 13.2 , Neutrophils (%) (Auto) 59.8, Lymphocytes (%) (Auto) 24.4, Monocytes (%) (Auto ) 10.8 H, Eosinophils (%) (Auto) 2.8, Basophils (%) (Auto) 0.7, Neutrophils # ( Auto) 5.9, Lymphocytes # (Auto) 2.4, Monocytes # (Auto) 1.1 H, Eosinophils # ( Auto) 0.3, Basophils # (Auto) 0.1, Calcium Level 8.6, Aspartate Amino Transf ( AST/SGOT) 16, Alanine Aminotransferase (ALT/SGPT) 32, Alkaline Phosphatase 52, Total Bilirubin 0.3, Total Protein 7.5, Albumin 2.8 L Vital Signs Date Time Temp Pulse Resp B/P (MAP) Pulse Ox O2 Delivery O2 Flow Rate FiO2 06/04/17 10:00 97.4 73 18 127/60 (82) 97 Room Air I&O- Last 24 Hours up to 6 AM 06/05/17 06:00 Intake Total 960 ml Output Total 0 ml Balance 960 ml JUNE MOORE MD Jun 04, 2017 14:03
[2017-06-04 18:00] VITALS: BP 129/73
[2017-06-04 22:00] VITALS: BP 136/68
[2017-06-04] MEDS: ACETAMINOPHEN TAB 650MG DOSE (2X325MG) PO PRN (22:01)
[2017-06-05 02:00] VITALS: BP 122/60
[2017-06-05 06:00] VITALS: BP 111/60
[2017-06-05 06:09] LABS: BASO # 0.1 10^3/uL (0.0-0.2); BASO % 0.8 % (0.0-1.0); EOS # 0.4 10^3/uL (0.0-0.50); EOS % 3.2 % (0.0-3.0); IMMATURE GRANULOCYTE % 1.9 % (0-0); LYMPH # 2.7 10^3/uL (1.5-4.5); LYMPH % 25.2 % (24.0-44.0); MEAN CORPUSCULAR HEMOGLOBIN 30.2 pg (27.0-33.0); MEAN CORPUSCULAR HGB CONC 32.8 g/dl (32.0-36.5); MONO # 1.1 10^3/uL (0.0-0.8); MONO % 10.2 % (0.0-5.0); NEUTROPHILS # 6.4 10^3/uL (1.8-7.7); NEUTROPHILS % 58.7 % (36.0-66.0); PLATELET COUNT, AUTOMATED 357 10^3/uL (150-450); RED CELL DISTRIBUTION WIDTH 13.1 % (11.5-14.5); WHITE BLOOD COUNT 10.8 10^3/uL (4.0-10.0)
[2017-06-05 06:26] LABS: ALBUMIN 3.1 GM/DL (3.2-5.2); ALBUMIN/GLOBULIN RATIO 0.65 (1.00-1.93); ALKALINE PHOSPHATASE 61 U/L (45-117); ALT/SGPT 42 U/L (12-78); ANION GAP 6 MEQ/L (8-16); AST/SGOT 19 U/L (15-37); BILIRUBIN,TOTAL 0.3 MG/DL (0.2-1.0); BLOOD UREA NITROGEN 13 MG/DL (7-18); CALCIUM LEVEL 8.9 MG/DL (8.5-10.1); CARBON DIOXIDE LEVEL 28 MEQ/L (21-32); CHLORIDE LEVEL 106 MEQ/L (98-107); CREATININE FOR GFR 0.82 MG/DL (0.70-1.30); GLOMERULAR FILTRATION RATE > 60.0 (>56); GLUCOSE, FASTING 96 MG/DL (70-105); MAGNESIUM LEVEL 2.4 MG/DL (1.8-2.4); POTASSIUM SERUM 4.2 MEQ/L (3.5-5.1); SODIUM LEVEL 140 MEQ/L (136-145); TOTAL PROTEIN 7.9 GM/DL (6.4-8.2)
[2017-06-05] MEDS: CEFTAROLINE FOSAMIL 600 MG in D5W 50 ML IV SCH (06:34)
[2017-06-05] MEDS: HEPARIN SOD (PORCINE) 5000 UNITS/ML VIAL SC SCH (06:34)
[2017-06-05] MEDS ORDERED: KEFL500C17 PO (08:05)
[2017-06-05 10:00] VITALS: BP 122/57
--- NOTE | 2017-06-05 21:17 | DSES ---
DATE OF ADMISSION: 05/31/2017 DATE OF DISCHARGE: 06/05/2017 PRIMARY CARE PROVIDER: Tariq Pope MD DISCHARGE DIAGNOSES: Right lower extremity recurrent cellulitis. Morbid obesity. DISCHARGE MEDICATIONS: - Keflex 500 mg by mouth every 6 hours for 3 days - ibuprofen 800 mg by mouth three times a day as needed pain HOSPITAL COURSE: This is a 52-year-old male presented to the hospital with right leg pain for one day. The patient has a history of traumatic right leg injury in 1996 with injury to bone, muscles and soft tissues requiring a fracture fixation, muscle grafting, skin grafting and currently has chronic deformity of the leg presented with increased right leg swelling and right leg pain. The patient has history of prior similar presentation in the same leg and has history of prior cellulitis. This time also patient presented with recurrent cellulitis of the right lower extremity. The patient was treated with 5 days of IV Ceftaroline with improvement in his symptoms. He did complain of some chronic serosanguineous fluid discharge from the plantar aspect of his right leg intermittently especially when he is standing for a long time. In the hospital some drainage was noted of the bottom of his compression stockings. However, when we tried to express the fluid to send for culture nothing could be expressed out. On the day of discharge the patient's symptoms were resolved. His vitals were stable and the patient was functioning at baseline. PHYSICAL EXAMINATION: VITAL SIGNS: Temperature 96.2, pulse 75, respiratory rate 16, blood pressure 122/57, pulse oximetry 95% on room air. GENERAL: The patient awake, alert and oriented times three. Sitting up in chair in no acute distress. HEENT: Normocephalic, atraumatic. Moist mucous membranes. Anicteric eyes. CHEST: Clear to auscultation. CARDIOVASCULAR: S1, S2, regular. No rub, murmur or gallop. ABDOMEN: Obese, soft, nontender. Bowel sounds present. EXTREMITIES: There is chronic edema in the right lower extremity. LABORATORY DATA: WBC 10.8, hemoglobin 15.1, platelets 357. Sodium 140, potassium 4.2, chloride 106, bicarbonate 28, BUN 13, creatinine 0.8. Liver function tests are normal. CRP 3.1. Urinalysis: Is negative. Blood cultures are negative. RADIOLOGY: MRI of the foot and the leg did not show any evidence acute osteomyelitis. Did show diffuse edema of the soft tissues of the right lower leg with cellulitis. There was no abscess. Vascular ultrasound did not show any evidence of DVT in the right lower extremity. DISPOSITION: The patient is discharged home in stable condition. DISCHARGE INSTRUCTIONS: The patient to follow with primary care provider in one week. The patient should followup with podiatry for regular followup and assessment for intermittent fluid discharge from the plantar aspect of the right foot. May also benefit from referral to our wound clinic. Regular diet. Activity as tolerated.
== END 2017-06-05 11:37 | disposition home or self-care (01) | DRG 383 ==
LOC: M ED 13:35 → M ED INP 18:34 → M MSPAV 20:43
PROVIDERS: ADMIT Internal Medicine; ATTEND Internal Medicine Nephrology
DX: L03.115 Cellulitis of right lower limb (principal); Z68.41 Body mass index [BMI] 40.0-44.9, adult; E66.01 Morbid (severe) obesity due to excess calories; F17.210 Nicotine dependence, cigarettes, uncomplicated; D72.829 Elevated white blood cell count, unspecified; Z88.0 Allergy status to penicillin